=== PATIENT | male | born 1975 | race Caucasian/White ===

== ENCOUNTER 2023-12-16 21:38 | Inpatient (IN) | payer OTHER, SELFPAY ==
[2023-12-16] VITALS (10 sets, daily range): BP systolic 115–178; BP diastolic 66–98; BMI 22.7; BMI 22.1
--- NOTE | 2023-12-16 19:06 | EDRN ---
TRIAGE NOTE BY ALEX MONAE NOT SILVA POSADA
[2023-12-16] MEDS: ZOFRAN ODT (ORALLY DISINTEGRATING) 4 MG PO (19:09)
--- NOTE | 2023-12-16 19:45 | ED.GENMED ---
History of Present Illness
<Monster Cárdenas PA-C - Last Filed: 12/16/23 21:42>
General
Chief Complaint: Abdominal Symptoms
Time Seen by Provider: 12/16/23 19:31
History of Present Illness
History of Present Illness:
48-year-old male with history of insulin-dependent type 1 diabetes presents to the emergency department for evaluation of nausea and vomiting beginning this morning. He reports diffuse myalgias and arthralgias. He states he has been using his
insulin but his use has diminished recently, moved from [place] approximately 3 months ago and has not established with a primary care physician since coming to [place] glucose has been exceeding 300 for the better part of the past month. He
arrives by EMS, lethargic and toxic appearing
Review of Systems
<Monster Cárdenas PA-C - Last Filed: 12/16/23 21:42>
Review of Systems
Allergies reviewed?: Yes
All Other Systems: ROS reviewed and negative except as documented in HPI and ROS
Phy Exam
<Monster Cárdenas PA-C - Last Filed: 12/16/23 21:42>
Physical Exam
Physical Exam:
GEN: Toxic appearing, lethargic but arouses to voice
Eyes: PERRLA, EOMs intact, no scleral icterus
HENT: NCAT, oral mucosa dry
Lungs: Tachypneic and hypercapnic, lungs clear but poor inspiratory effort
Cardiac: Tachycardic, regular
Abdomen: S, NT, ND, NABS, no masses or hepatosplenomegaly
Neuro: Lethargic, arouses to voice, oriented x 3
MSK: No gross deformity or ecchymosis.
Skin: No rashes, petechiae. Normal color, no pallor or jaundice.
Psych: Lethargic, calm
Course
<DANE Ledesma Last Filed: 12/16/23 21:42>
Orders/Labs/Results
Orders:
Orders
12/16/23 19:06
Accucheck Once [Bedside Glucose Monitoring-ONCE] As Directed
12/16/23 19:08
Ondansetron Orally Disint [Zofran Odt (Orally Disintegrating)] 4 mg .ROUTE .STK-MED ONE
12/16/23 19:09
Ondansetron Orally Disint [Zofran Odt (Orally Disintegrating)] 4 mg PO NOW STA
12/16/23 19:20
Comprehensive Metabolic Panel Urgent
12/16/23 19:44
Electrocardiogram (*1) Urgent
Reason for Study: QTc Monitoring
EKG- Treatment ONCE
Acetone [B-Hydroxybutyrate] Urgent
Lactated Ringers [Lr] 1,000 ml IV BOLUS
Ondansetron Injectable [Zofran] 4 mg IV NOW STA
12/16/23 19:50
Bedside Glucose- Treatment Q1H
IV Insert/Care/Rem.- Treatment PRN
Reg Insulin 100 Units/100 ml [Novolin R Insulin Infusion] 100 units in 100 ml IV NOW
12/16/23 20:07
Complete Blood Count/With Diff Urgent
Urinalysis Reflex To Culture Urgent
Date Specimen was Collected: 12/16/23
Time Specimen was Collected: 19:46
Urine Microscopic Reflex Cult Urgent
Venous Blood Gas Urgent
%Oxygen/Room Air: 100
12/16/23 20:23
0.9% Sodium Chloride 1000 ml [Nss] 1,000 ml IV BOLUS
12/16/23 20:45
0.45% Sodium Chloride 1000 ml [0.45%NaCl] 1,000 ml Sodium Bicarbonate 150 meq IV 150 mls/hr
12/16/23 21:25
Admit/Transfer Patient As Directed
Co-Sign Provider:
Level of Care: Inpatient admission
Assign to:: ICU
Physician / Group: juan
Diagnosis: DKA
Reason for Hospitalization: DKA
Expected length of stay greater than two midnights?: Yes
ELOS- Estimated Length of Stay in days: 2
I certify the patient meets the requirements for IP care: Yes
Code Status As Directed
Resuscitation Status: Full Code
PRN Pain Medication Management As Directed
May give lesser potent ordered pain med per pt: Yes
preference::
Protocol:: Medication orders for pain may be administered in a
manner that supports deferring to patient preference
when the pt is:
- Requesting an ordered lesser potent pain medication.
Least to most potent pain medications are defined
as: acetaminophen < NSAID < tramadol < opioids
(morphine, oxycodone, hydromorphone).
- Requesting a lesser dose of the same medication IF
ORDERED.
- Requesting a less intrusive route of administration
if both routes are prescribed by the provider (PO <
IV).
12/16/23 21:30
Phosphorus Urgent
12/16/23 21:31
0.9% Sodium Chloride [Nss (Preservative Free)] See Protocol IV PRN PRN
FOLic ACID [Folvite] 1 mg 0.9% Sodium Chloride 50 ml [Nss] 50 ml IV DAILYPRN
Lorazepam [Ativan] 1 mg IV Q1HPRN PRN
Lorazepam [Ativan] 1 mg PO Q2HPRN PRN
Lorazepam [Ativan] 2 mg IV Q1HPRN PRN
MSAS SCORE As Directed
MSAS Score 0-4: Repeat MSAS every 2 hours until 0-4 for three consecutive assessments, then every 4 hours x 48
hours.
MSAS Score 5-7: For MILD withdrawl symptoms. Repeat MSAS and RASS every 2 hours
MSAS Score 8-11: For MODERATE withdrawal symptoms. Repeat MSAS and RASS every 1 hour. Consider ICU or IMU
level of care.
MSAS Score > 11: For SEVERE withdrawal symptoms. Repeat MSAS and RASS every 1 hour. Notify provider, consider
ICU level of care.
MSAS Additional Instructions: If no improvement or no decrease in score from severe to moderate within 12
hours, consult psychiatry
MSAS Notify Provider: Notify provider if patient requires more than 10 mg of Lorazepam in eight hour period.
12/16/23 21:35
CR Chest Portable - 1 View Urgent
Comment:
Reason For Exam: dka trigger
Reason Study Needs to be Portable: Unable to Transport
12/16/23 22:00
Pantoprazole [Protonix IV] 40 mg IV BID
12/17/23 08:00
FOLic ACID [Folvite] 1 mg PO DAILY
Thiamine Injection 200 mg IV Q12
12/20/23 08:00
Thiamine HCl [Vitamin B1] 100 mg PO BID
Abnormal Lab Results
12/16/23 12/16/23 12/16/23
19:20 19:44 20:07
WBC 23.4 H 10^3/uL
(4.8-10.8)
MCH 31.7 H pg
(27.0-31.0)
MPV 12.8 H fL
(7.4-10.4)
Abs Immat Gran (auto) 0.3 H 10^3/uL
(0-0.05)
Absolute Neuts (auto) 18.9 H 10^3/uL
(1.4-6.5)
Absolute Monos (auto) 1.4 H 10^3/uL
(0.1-0.6)
Immature Gran % 1.3 H %
(0-0.5)
Neutrophils % 80.5 H %
(42.2-75.2)
Lymphocytes % 11.3 L %
(20.5-51.1)
VBG pH 6.80 L*
(7.32-7.43)
VBG pCO2 30 L mmHg
(35-48)
VBG pO2 94 H mmHg
(30-50)
VBG HCO3 4.7 L mmol/L
(22-27)
Potassium 5.4 H mmol/L
(3.5-5.1)
Chloride 96 L mmol/L
(98-107)
Carbon Dioxide < 5 L* mmol/L
(22-30)
Glucose 537 H* mg/dl
(70-99)
Calcium 10.3 H mg/dl
(8.4-10.2)
Albumin 5.8 H g/dl
(3.5-5.0)
Urine Ketones 3+ A
(Negative)
Ur Occult Blood Reflex Trace A
(Negative)
Urine Bacteria (Reflex) Few A
(Negative)
Urine Glucose 3+ A
(Negative)
B-Hydroxybutyrate > 12.0 H mmol/L
(0.02-0.27)
POC Glucose
12/16/23
20:46
WBC
MCH
MPV
Abs Immat Gran (auto)
Absolute Neuts (auto)
Absolute Monos (auto)
Immature Gran %
Neutrophils %
Lymphocytes %
VBG pH
VBG pCO2
VBG pO2
VBG HCO3
Potassium
Chloride
Carbon Dioxide
Glucose
Calcium
Albumin
Urine Ketones
Ur Occult Blood Reflex
Urine Bacteria (Reflex)
Urine Glucose
B-Hydroxybutyrate
POC Glucose 498 H* mg/dl
(70-99)
12/16/23 20:07
12/16/23 19:20
Vital Signs
Initial and Last Documented VS:
Initial Vital Signs
Temp Pulse Resp BP Pulse Ox
97.1 F 104 24 178/98 100
12/16/23 19:01 12/16/23 19:01 12/16/23 19:01 12/16/23 19:01 12/16/23 19:01
Last Documented Vital Signs
Temp Pulse Resp BP Pulse Ox
97.1 F 120 17 133/67 96
12/16/23 19:01 12/16/23 21:30 12/16/23 21:30 12/16/23 21:30 12/16/23 21:00
<Yovany Peña, DO - Last Filed: 12/16/23 22:06>
Orders/Labs/Results
Orders:
Orders
12/16/23 19:06
Accucheck Once [Bedside Glucose Monitoring-ONCE] As Directed
12/16/23 19:08
Ondansetron Orally Disint [Zofran Odt (Orally Disintegrating)] 4 mg .ROUTE .STK-MED ONE
12/16/23 19:09
Ondansetron Orally Disint [Zofran Odt (Orally Disintegrating)] 4 mg PO NOW STA
12/16/23 19:20
Comprehensive Metabolic Panel Urgent
12/16/23 19:44
Electrocardiogram (*1) Urgent
Reason for Study: QTc Monitoring
EKG- Treatment ONCE
Acetone [B-Hydroxybutyrate] Urgent
Lactated Ringers [Lr] 1,000 ml IV BOLUS
Ondansetron Injectable [Zofran] 4 mg IV NOW STA
12/16/23 19:50
Bedside Glucose- Treatment Q1H
IV Insert/Care/Rem.- Treatment PRN
Reg Insulin 100 Units/100 ml [Novolin R Insulin Infusion] 100 units in 100 ml IV NOW
12/16/23 20:07
Complete Blood Count/With Diff Urgent
Urinalysis Reflex To Culture Urgent
Date Specimen was Collected: 12/16/23
Time Specimen was Collected: 19:46
Urine Microscopic Reflex Cult Urgent
Venous Blood Gas Urgent
%Oxygen/Room Air: 100
12/16/23 20:23
0.9% Sodium Chloride 1000 ml [Nss] 1,000 ml IV BOLUS
12/16/23 20:45
0.45% Sodium Chloride 1000 ml [0.45%NaCl] 1,000 ml Sodium Bicarbonate 150 meq IV 150 mls/hr
12/16/23 21:25
Admit/Transfer Patient As Directed
Co-Sign Provider:
Level of Care: Inpatient admission
Assign to:: ICU
Physician / Group: juan
Diagnosis: DKA
Reason for Hospitalization: DKA
Expected length of stay greater than two midnights?: Yes
ELOS- Estimated Length of Stay in days: 2
I certify the patient meets the requirements for IP care: Yes
Code Status As Directed
Resuscitation Status: Full Code
PRN Pain Medication Management As Directed
May give lesser potent ordered pain med per pt: Yes
preference::
Protocol:: Medication orders for pain may be administered in a
manner that supports deferring to patient preference
when the pt is:
- Requesting an ordered lesser potent pain medication.
Least to most potent pain medications are defined
as: acetaminophen < NSAID < tramadol < opioids
(morphine, oxycodone, hydromorphone).
- Requesting a lesser dose of the same medication IF
ORDERED.
- Requesting a less intrusive route of administration
if both routes are prescribed by the provider (PO <
IV).
12/16/23 21:30
Phosphorus Urgent
12/16/23 21:31
0.9% Sodium Chloride [Nss (Preservative Free)] See Protocol IV PRN PRN
FOLic ACID [Folvite] 1 mg 0.9% Sodium Chloride 50 ml [Nss] 50 ml IV DAILYPRN
Lorazepam [Ativan] 1 mg IV Q1HPRN PRN
Lorazepam [Ativan] 1 mg PO Q2HPRN PRN
Lorazepam [Ativan] 2 mg IV Q1HPRN PRN
MSAS SCORE As Directed
MSAS Score 0-4: Repeat MSAS every 2 hours until 0-4 for three consecutive assessments, then every 4 hours x 48
hours.
MSAS Score 5-7: For MILD withdrawl symptoms. Repeat MSAS and RASS every 2 hours
MSAS Score 8-11: For MODERATE withdrawal symptoms. Repeat MSAS and RASS every 1 hour. Consider ICU or IMU
level of care.
MSAS Score > 11: For SEVERE withdrawal symptoms. Repeat MSAS and RASS every 1 hour. Notify provider, consider
ICU level of care.
MSAS Additional Instructions: If no improvement or no decrease in score from severe to moderate within 12
hours, consult psychiatry
MSAS Notify Provider: Notify provider if patient requires more than 10 mg of Lorazepam in eight hour period.
12/16/23 21:35
CR Chest Portable - 1 View Urgent
Comment:
Reason For Exam: dka trigger
Reason Study Needs to be Portable: Unable to Transport
12/16/23 22:00
Pantoprazole [Protonix IV] 40 mg IV BID
12/17/23 08:00
FOLic ACID [Folvite] 1 mg PO DAILY
Thiamine Injection 200 mg IV Q12
12/20/23 08:00
Thiamine HCl [Vitamin B1] 100 mg PO BID
Abnormal Lab Results
12/16/23 12/16/23 12/16/23
19:20 19:44 20:07
WBC 23.4 H 10^3/uL
(4.8-10.8)
MCH 31.7 H pg
(27.0-31.0)
MPV 12.8 H fL
(7.4-10.4)
Abs Immat Gran (auto) 0.3 H 10^3/uL
(0-0.05)
Absolute Neuts (auto) 18.9 H 10^3/uL
(1.4-6.5)
Absolute Monos (auto) 1.4 H 10^3/uL
(0.1-0.6)
Immature Gran % 1.3 H %
(0-0.5)
Neutrophils % 80.5 H %
(42.2-75.2)
Lymphocytes % 11.3 L %
(20.5-51.1)
VBG pH 6.80 L*
(7.32-7.43)
VBG pCO2 30 L mmHg
(35-48)
VBG pO2 94 H mmHg
(30-50)
VBG HCO3 4.7 L mmol/L
(22-27)
Potassium 5.4 H mmol/L
(3.5-5.1)
Chloride 96 L mmol/L
(98-107)
Carbon Dioxide < 5 L* mmol/L
(22-30)
Glucose 537 H* mg/dl
(70-99)
Calcium 10.3 H mg/dl
(8.4-10.2)
Albumin 5.8 H g/dl
(3.5-5.0)
Urine Ketones 3+ A
(Negative)
Ur Occult Blood Reflex Trace A
(Negative)
Urine Bacteria (Reflex) Few A
(Negative)
Urine Glucose 3+ A
(Negative)
B-Hydroxybutyrate > 12.0 H mmol/L
(0.02-0.27)
POC Glucose
12/16/23
20:46
WBC
MCH
MPV
Abs Immat Gran (auto)
Absolute Neuts (auto)
Absolute Monos (auto)
Immature Gran %
Neutrophils %
Lymphocytes %
VBG pH
VBG pCO2
VBG pO2
VBG HCO3
Potassium
Chloride
Carbon Dioxide
Glucose
Calcium
Albumin
Urine Ketones
Ur Occult Blood Reflex
Urine Bacteria (Reflex)
Urine Glucose
B-Hydroxybutyrate
POC Glucose 498 H* mg/dl
(70-99)
12/16/23 20:07
12/16/23 19:20
Vital Signs
Initial and Last Documented VS:
Initial Vital Signs
Temp Pulse Resp BP Pulse Ox
97.1 F 104 24 178/98 100
12/16/23 19:01 12/16/23 19:01 12/16/23 19:01 12/16/23 19:01 12/16/23 19:01
Last Documented Vital Signs
Temp Pulse Resp BP Pulse Ox
97.1 F 120 17 133/67 96
12/16/23 19:01 12/16/23 21:30 12/16/23 21:30 12/16/23 21:30 12/16/23 21:00
<Monster Cárdenas PA-C - Last Filed: 12/16/23 21:42>
MDM/Problems Addressed
MDM/Problems Addressed:
Patient is quite ill with severe anion gap metabolic acidosis due to DKA. Started on aggressive IV fluid resuscitation and IV insulin drip, bicarb initiated via infusion due to pH 6.8. Will be admitted to the ICU. No overt infectious symptoms,
suspect leukocytosis is a product of volume contraction and stress response, do not see indication for antibiotics
<Monster Cárdenas PA-C - Last Filed: 12/16/23 21:42>
Comment
Comment:
EKG independently interpreted by me shows a sinus tachycardia at a rate of 115 with mildly peaked T waves, no ischemic changes
*Critical Care Note
Total Time (30-74mins, 75-104mins- exclusive of procedures): 45 mins
comment:
Critical care time: 45 minutes
Critical care time was exclusive of: Separately billable procedures, treating other patients, and teaching time
Critical care was necessary to treat or prevent imminent or life-threatening deterioration of the following conditions: DKA with severe metabolic acidosis
Critical care time spent personally by me on the following activities:
[x] Review of old charts
[x] Obtaining history from patient or surrogate
[x] Ordering and review of the laboratory studies
[ ] Ordering and review of radiographic studies
[x] Ordering and performing treatments and interventions
[x] Patient patient's response to treatment
[x] Development of treatment plan with patient or surrogate
ED Attending Note
<Monster Cárdenas PA-C - Last Filed: 12/16/23 21:42>
-
Portions of this chart may have been created with voice recognition software.� Occasional wrong word or��sound alike� substitutions may have occurred due to the inherent limitations of voice recognition software.
<Yovany Peña DO - Last Filed: 12/16/23 22:06>
ED Attending Note
Patient seen and examined by attending physician: Yes
I performed the substantive portion of visit, reviewed & personally made and approve the management plan that is documented in note by myself or SARAH.: Yes
ED Attending Note:
48-year-old male with vomiting and hyperglycemia. Found to be in DKA. Insulin drip, bicarb drip, admit.
Discharge Plan
Departure
Patient Disposition: Admit
Date of Disposition: 12/16/23
Time of Disposition: 20:45
Admit to: ICU
Presentation/result/management discussed w/ accepting MD/DO: Hospitalist
Discharge Problem:
DKA (diabetic ketoacidosis)
Interventions
Interventions:
*Risk Screen - Suicide Last Done: 12/16/23 19:01
*General Assessment Last Done: 12/16/23 19:36
*Neglect/Abuse Screening Last Done: 12/16/23 19:01
ED- Fall Risk Assessment Last Done: 12/16/23 19:36
*Nursing Disposition Last Done: 12/16/23 21:47
WC-Eqeumi-Vvsdrmcjle Assessment Last Done: 12/16/23 19:36
Discharge Date and Time
Discharge Date/Time: 12/16/23 21:54
[2023-12-16 19:46] LABS: ALT (SGPT) 31 U/L (0-50); AST (SGOT) 30 U/L (17-59); Albumin 5.8 g/dl (3.5-5.0); Alkaline Phosphatase 92 U/L (38-126); Blood Urea Nitrogen 20 mg/dl (9-20); Calcium 10.3 mg/dl (8.4-10.2); Carbon Dioxide < 5 mmol/L (22-30); Chloride 96 mmol/L (98-107); Glucose 537 mg/dl (70-99); Potassium 5.4 mmol/L (3.5-5.1); Sodium 138 mmol/L (135-145); Total Bilirubin 0.7 mg/dl (0.2-1.3); eGFR > 60.00
[2023-12-16 20:15] LABS: % Basophils 0.6 % (0-2); % Eosinophils 0.2 % (0-6); % Immature Granulocytes 1.3 % (0-0.5); % Lymphocytes 11.3 % (20.5-51.1); % Monocytes 6.1 % (1.7-9.3); % Neutrophils 80.5 % (42.2-75.2); Absolute Basophils 0.1 10^3/uL (0-0.2); Absolute Immature Granulocytes 0.3 10^3/uL (0-0.05); Absolute Lymphocytes 2.6 10^3/uL (1.2-3.4); Absolute Monocytes 1.4 10^3/uL (0.1-0.6); Absolute Neutrophils 18.9 10^3/uL (1.4-6.5); Hematocrit 46.2 % (39.0-52.0); Hemoglobin 15.9 g/dL (13.0-18.0); Mean Corp Hgb Conc. 34.4 g/dL (33.0-37.0); Mean Corpuscular Hgb 31.7 pg (27.0-31.0); Mean Corpuscular Volume 92.2 fL (80.0-94.0); Mean Platelet Volume 12.8 fL (7.4-10.4); Nucleated Red Blood Cells % 0 % (-); Platelet Count 200 10^3/uL (130-400); Red Blood Cell Count 5.01 10^6/uL (4.70-6.10); Red Cell Dist. Width 11.8 % (11.5-14.5); White Blood Cell Count 23.4 10^3/uL (4.8-10.8)
[2023-12-16 20:20] LABS: Venous Blood Gas B.E. -29.9 mmol/L (-4 to +4); Venous Blood Gas HCO3 4.7 mmol/L (22-27); Venous Blood Gas O2 Sat % 98.2 %; Venous Blood Gas pCO2 30 mmHg (35-48); Venous Blood Gas pO2 94 mmHg (30-50)
[2023-12-16] MEDS: ZOFRAN 4 MG IV (20:22)
[2023-12-16] MEDS: LR 1000 IV (20:23)
[2023-12-16] MEDS: NSS 1000 IV (20:24)
[2023-12-16] MEDS: NOVOLIN R INSULIN INFUSION 100 IV (20:45)
[2023-12-16 20:48] LABS: Glucose - Point of Care 498 mg/dl (70-99)
[2023-12-16 21:10] LABS: B-Hydroxybutyrate > 12.0 mmol/L (0.02-0.27)
[2023-12-16 21:32] LABS: Urine Albumin Trace (Neg - Trace); Urine Bilirubin Negative (Negative); Urine Character Clear (Clear); Urine Color Yellow; Urine Glucose 3+ (Negative); Urine Ketone 3+ (Negative); Urine Leukocyte Negative (Negative); Urine Nitrite Negative (Negative); Urine Occult Blood Trace (Negative); Urine Urobilinogen Negative (Neg - 1+)
--- NOTE | 2023-12-16 21:33 | HPS.HSE ---
Family Physician
-
Family Physician: * NONE
Chief Complaint
-
vomiting
History of Present Illness
48-year-old male past medical history of type 1 diabetes presenting to the emergency room for nausea and vomiting starting this morning. Patient moved from [place] last year and has not sought out a primary care physician in the area. He states
that he takes Lantus 20 units twice a day with sliding scale and he has been compliant with this. He states that sugars have been very variable up to 500 at times. He thinks that his blood sugars are elevated due to the weather.
Today he developed multiple episodes of vomiting associate with coffee-ground emesis. He did have some chest pain intermittent abdominal pains but denies significant pain currently. Coughing of blood has resolved. He denies any diarrhea. He
denies any blood in the stool or black stool. He denies shortness of breath. Patient states that he was coughing up blood previously and around 2019. He had an endoscopy but he does not remember what the results showed.
He drinks liquor 2-3 times a day. Denies smoking or any other drugs.
Medical History
Past Medical History
Past Medical History: Reports Other ( type 1 diabetes)
Past Surgical History: Reports None
Social History
Tobacco: Non-smoker
Alcohol: Daily
Drug: None
Family History
Family History: Not pertinent
Allergies / Home Medications
Allergies reflects when Allergies were last updated in [email or web address].
Home Medications with original date entered in [email or web address]
Allergy/Medication List:
Allergies
Allergy/AdvReac Type Severity Reaction Status Date / Time
No Known Allergies Allergy Verified 12/16/23 20:31
Review of Systems
-
History Source: Patient
A 12 point ROS was completed and negative except as noted: Yes
Constitutional: Reports No Symptoms
EENT: Reports No Symptoms
Respiratory: Reports No Symptoms
Cardiac: Reports No Symptoms
Abdomen/GI: Reports No Symptoms
: Reports No Symptoms
Musculoskeletal: Reports No Symptoms
Skin: Reports No Symptoms
Neurological: Reports No Symptoms
Endocrine: Reports No Symptoms
Hematologic/Lymphatic: Reports No Symptoms
Psych: Reports No Symptoms
Physical Exam
Vital Signs
Vital Signs
Temp Pulse Resp BP Pulse Ox
97.1 F 120 17 159/74 96
12/16/23 19:01 12/16/23 21:30 12/16/23 21:30 12/16/23 21:00 12/16/23 21:00
Physical Exam
General: Well Developed, Well Nourished and No Apparent Distress
HEENT: NormoCephalic, Moist mucous membranes and Atraumatic
Respiratory: Clear
Cardiac: S1/S2 and Regular Rhythm; No Murmur or Rub
GI: Soft, Non Tender, Non Distended and Normal Bowel Sounds; No Organomegaly
Rectal: Deferred by Provider
Musculoskeletal: No Clubbing, No Cyanosis and No Edema
Skin: No Rash
Neuro: Nonfocal/grossly intact
Laboratory Results
-
12/16/23 20:07
12/16/23 19:20
Laboratory Results
Total Bilirubin 0.7 mg/dl (0.2-1.3) 12/16/23 19:20
AST 30 U/L (17-59) 12/16/23 19:20
ALT 31 U/L (0-50) 12/16/23 19:20
Alkaline Phosphatase 92 U/L (38-126) 12/16/23 19:20
Data Reviewed
-
Lab Data: Labs Reviewed by me
Old Records: Reviewed
Impression/Plan
-
IMPRESSION:
PLAN:
# DKA
# Anion gap metabolic acidosis
# History of type 1 diabetes
-Blood sugar 537
-Corrected sodium 145
-pH of 6.8
-IV fluids with bicarb 150 meq without potassium
-Check BMP every 4 hours and adjust IV fluids as necessary
-Check phosphorus
-Accu-Cheks every hour
-Insulin drip
-N.p.o.
-check UA, CXR
# Hyperkalemia secondary to insulin deficiency
-Monitor with IV fluids
# Hematemesis likely Norma-Storey tear
-Hemoglobin 15
-Bleeding resolved
-Protonix 40 IV twice daily
-Consult GI for worsening anemia, further bleeding
# Likely alcohol withdrawal
-Thiamine and folate
-Alcohol withdrawal protocol
Full code
DVT prophylaxis�SCDs
N.p.o.
[2023-12-16 21:41] LABS: Glucose - Point of Care 488 mg/dl (70-99)
--- NOTE | 2023-12-16 21:41 | EDRN ---
attempted to call ICU to given report, RN unavailable at this time.
[2023-12-16 21:42] LABS: Urine Bacteria Few (Negative); Urine Red Blood Cell 0-2 /HPF (0-2); Urine White Cell 0-2 /HPF (0-5)
[2023-12-16 22:29] LABS: Glucose - Point of Care 547 mg/dl (70-99)
[2023-12-16] MEDS: COMPAZINE 10 MG IV (22:34)
[2023-12-16 22:36] LABS: PT 15.1 Sec (11.4-14.6)
[2023-12-16 22:45] LABS: Phosphorus 9.3 mg/dl (2.5-4.5)
[2023-12-16 22:45] LABS: Glucose 438 mg/dl (70-99)
--- NOTE | 2023-12-16 22:45 | PTCARENOTE ---
Pt arrived from ED ~2199. Pt transferred self from stretcher to bed without incidence. Complete CHG bath provided upon arrival to unit. Pt admitted w DKA, received on insulin infusion from ED; accucheck performed 2211 with RR HI result, STAT glucose
drawn and sent per protocol. Venous glucose result received 2300 438, insulin infusion rate adjusted per protocol. This was discussed w VALENTIN Rodgers. Pt is AAO3, flat/withdrawn. Pt reports acute on chronic back pain 'from lying on stretcher,' pt
repositioning self in bed without issue. Telemetry rhythm reveals ST, HR 120-130's, no edema noted, palpable peripheral pulses present, knee high SCDs placed as ordered. Lung sounds are clear throughout, pox 90-99% on room air, pt denies SOB/cough.
+BS, abdomen soft nontender, + nausea, vomited < 50ml dark brown emesis shortly after arrival to ICU. DEMAND GENERATION MANAGER placed order for Compazine IV X1, administered with good relief. Pt voided yellow urine into urinal without difficulty. Skin intact. L AC int
with insulin infusion; R AC int with IVF per orders. Pt's significant other, Ngoc, at bedside. Safe environment maintained, call jacome within reach. Will monitor.
[2023-12-16] MEDS: PROTONIX IV 40 MG IV (22:54)
[2023-12-16] MEDS: FLUSH (NSS) 1 FLUSH IV (22:54)
[2023-12-16] MEDS: 0.45% NACL with KCL 20 MEQ 1000 IV (23:01)
[2023-12-17] VITALS (24 sets, daily range): BP systolic 108–138; BP diastolic 57–84; BMI 22.7
[2023-12-17 00:19] LABS: Glucose - Point of Care 384 mg/dl (70-99)
--- NOTE | 2023-12-17 00:30 | PTCARENOTE ---
Pt sleeping when undisturbed. Pt's SO remains at bedside. Continuing Q1H accuchecks and serial labs as ordered. MSAS per protocol. No change in pt assessment.
[2023-12-17 01:03] LABS: Blood Urea Nitrogen 19 mg/dl (9-20); Calcium 8.7 mg/dl (8.4-10.2); Carbon Dioxide < 5 mmol/L (22-30); Chloride 106 mmol/L (98-107); Estimated Creatinine Clearance 95 ml/min; Glucose 344 mg/dl (70-99); Potassium 5.7 mmol/L (3.5-5.1); Sodium 141 mmol/L (135-145); eGFR > 60.00
[2023-12-17] MEDS: 0.45%NACL 1000 IV (01:22)
[2023-12-17 01:31] LABS: Venous Blood Gas B.E. -19.8 mmol/L (-4 to +4); Venous Blood Gas HCO3 9.3 mmol/L (22-27); Venous Blood Gas O2 Sat % 94.8 %; Venous Blood Gas pCO2 32 mmHg (35-48); Venous Blood Gas pO2 60 mmHg (30-50)
[2023-12-17 01:31] LABS: Glucose - Point of Care 295 mg/dl (70-99)
[2023-12-17 01:33] LABS: Venous Blood Gas pH 7.07 (7.32-7.43)
[2023-12-17 02:13] LABS: Glucose - Point of Care 255 mg/dl (70-99)
[2023-12-17 03:11] LABS: Glucose - Point of Care 243 mg/dl (70-99)
--- NOTE | 2023-12-17 03:15 | PTCARENOTE ---
Pt sleeping when undisturbed. Significant other remains at bedside. Pt's hourly accucheck result @ 0300 243. Discussed w VALENTIN Rodgers; per FLEXO OPERATOR will continue IVF as ordered and re-evaluate with 0400 accucheck/BMP. No change in pt physical assessment.
[2023-12-17 04:15] LABS: Glucose - Point of Care 230 mg/dl (70-99)
[2023-12-17 04:31] LABS: % Basophils 0.1 % (0-2); % Immature Granulocytes 0.7 % (0-0.5); % Lymphocytes 3.9 % (20.5-51.1); % Monocytes 4.4 % (1.7-9.3); % Neutrophils 90.9 % (42.2-75.2); Absolute Immature Granulocytes 0.1 10^3/uL (0-0.05); Absolute Lymphocytes 0.7 10^3/uL (1.2-3.4); Absolute Monocytes 0.7 10^3/uL (0.1-0.6); Absolute Neutrophils 15.2 10^3/uL (1.4-6.5); Hematocrit 37.3 % (39.0-52.0); Hemoglobin 13.4 g/dL (13.0-18.0); Mean Corp Hgb Conc. 35.9 g/dL (33.0-37.0); Mean Corpuscular Hgb 31.7 pg (27.0-31.0); Mean Corpuscular Volume 88.2 fL (80.0-94.0); Mean Platelet Volume 12.2 fL (7.4-10.4); Nucleated Red Blood Cells % 0 % (-); Platelet Count 135 10^3/uL (130-400); Red Blood Cell Count 4.23 10^6/uL (4.70-6.10); Red Cell Dist. Width 11.5 % (11.5-14.5); White Blood Cell Count 16.8 10^3/uL (4.8-10.8)
[2023-12-17 04:55] LABS: Blood Urea Nitrogen 19 mg/dl (9-20); Calcium 8.7 mg/dl (8.4-10.2); Carbon Dioxide 10 mmol/L (22-30); Chloride 107 mmol/L (98-107); Estimated Creatinine Clearance 108 ml/min; Glucose 232 mg/dl (70-99); Potassium 5.1 mmol/L (3.5-5.1); Sodium 141 mmol/L (135-145); eGFR > 60.00
[2023-12-17] MEDS: D5/0.45%NSS with KCL 20 MEQ 1000 IV ×5 (05:10→21:09)
[2023-12-17 05:13] LABS: Glucose - Point of Care 199 mg/dl (70-99)
--- NOTE | 2023-12-17 05:28 | PTCARENOTE ---
AM labs discussed w HAND STITCHER Vishal. 0500 accucheck result relayed to HAND STITCHER, new orders received for IVF. Pt's HR 90's bpm, pox 100% 2L O2 nasal cannula, MSAS < 4 since arrival to ICU. Will continue to monitor.
[2023-12-17 06:18] LABS: Glucose - Point of Care 230 mg/dl (70-99)
[2023-12-17] MEDS: THIAMINE INJECTION 200 MG IV ×2 (07:13→21:08)
[2023-12-17] MEDS: PROTONIX IV 40 MG IV ×2 (07:13→21:08)
[2023-12-17] MEDS: FOLVITE 1 MG PO (07:13)
[2023-12-17 07:14] LABS: Glucose - Point of Care 242 mg/dl (70-99)
--- NOTE | 2023-12-17 07:45 | PTCARENOTE ---
Rec'd care of patient at 0700. Patient alert and oriented. Flat affect. NSR on tele monitor. 2L nc removed. Pulse ox 99% on RA. Lung sounds diminished in b/l base. +BS. No n/v at current time. Voiding via urinal. Insulin gtt and D5 1/2 NS w/ 20 KCl
infusing as ordered. NPO. VSS.
[2023-12-17 08:15] LABS: Glucose - Point of Care 269 mg/dl (70-99)
[2023-12-17 08:25] LABS: Glycohemoglobin (HgbA1c) 9.4 % (4.0-5.6)
[2023-12-17 08:52] LABS: Blood Urea Nitrogen 18 mg/dl (9-20); Calcium 8.5 mg/dl (8.4-10.2); Carbon Dioxide 17 mmol/L (22-30); Chloride 105 mmol/L (98-107); Estimated Creatinine Clearance 122 ml/min; Glucose 267 mg/dl (70-99); Potassium 5.1 mmol/L (3.5-5.1); Sodium 135 mmol/L (135-145); eGFR > 60.00
--- NOTE | 2023-12-17 09:39 | W.PN.HOSP.TC ---
Today's Communication/Plan
-
IV fluids. IV insulin drip.
Assessment / Plan
Assessment / Plan
Physical exam:
General: Acutely ill
HEENT: Normocephalic, Atraumatic and Moist Mucous Membranes
Respiratory: Clear to Auscultation; Negative Wheezes, Rales or Rhonchi
Cardiac: Regular Rhythm and S1/S2
GI: Soft, Nontender and Nondistended
Musculoskeletal: No Clubbing, No Cyanosis and No Edema
Neuro: Awake, Alert and Oriented
Psych: Calm
A/P:
# DKA
# Anion gap metabolic acidosis
# History of type 1 diabetes
-Blood sugar 537
-Corrected sodium 145
-pH of 6.8
-IV fluids with bicarb 150 meq without potassium
-Check BMP every 4 hours and adjust IV fluids as necessary
-Check phosphorus
-Accu-Cheks every hour
-Insulin drip
-N.p.o.
-check UA, CXR
-Discussed with car shagger
# Hyperkalemia secondary to insulin deficiency
-Monitor with IV fluids
# Hematemesis likely Norma-Storey tear
-Hemoglobin 15
-Bleeding resolved
-Protonix 40 IV twice daily
-Monitor hemoglobin
# Likely alcohol withdrawal
-Thiamine and folate
-Alcohol withdrawal protocol
Full code
DVT prophylaxis�SCDs
N.p.o.
Time spent 53 minutes
Anticipated Discharge: 24 - 48 hours
Subjective/Interval History
-
Date of Service: December 17, 2023
Patient feels better overall today. He had moved recently to the area and no PCP. No melena
Objective Data
-
Labs:
Laboratory Results
12/16/23 12/16/23 12/17/23
20:07 22:18 00:42
WBC 23.4 H
Hgb 15.9
Hct 46.2
Plt Count 200
PT 15.1 H
INR 1.20
APTT 26.0
Sodium 141
Potassium 5.7 H
Chloride 106
Carbon Dioxide < 5 L*
BUN 19
Creatinine 1.0
Glucose 438 H 344 H
Calcium 8.7 D
12/17/23 12/17/23 12/17/23
04:03 08:06 12:00
WBC 16.8 H
Hgb 13.4
Hct 37.3 L
Plt Count 135 D
PT
INR
APTT
Sodium 141 135 Pending
Potassium 5.1 5.1 Pending
Chloride 107 105 Pending
Carbon Dioxide 10 L* 17 L Pending
BUN 19 18 Pending
Creatinine 0.9 0.8 Pending
Glucose 232 H 267 H Pending
Calcium 8.7 8.5 Pending
12/17/23 12/17/23
16:00 20:00
WBC
Hgb
Hct
Plt Count
PT
INR
APTT
Sodium Pending Pending
Potassium Pending Pending
Chloride Pending Pending
Carbon Dioxide Pending Pending
BUN Pending Pending
Creatinine Pending Pending
Glucose Pending Pending
Calcium Pending Pending
Vital Signs:
Vital Signs
Temp Pulse Resp BP Pulse Ox
99.6 F 96 18 124/68 99
12/17/23 08:00 12/17/23 07:00 12/17/23 07:00 12/17/23 07:00 12/17/23 07:26
I&O
12/16/23 12/17/23 12/18/23
06:59 06:59 06:59
Intake Total 2031 / 2284 253 / 253
Output Total 2224
Balance - 253 / 253
[2023-12-17 09:43] LABS: Glucose - Point of Care 243 mg/dl (70-99)
[2023-12-17 10:39] LABS: Glucose - Point of Care 262 mg/dl (70-99)
--- NOTE | 2023-12-17 11:08 | CON.INTV ---
Consultation
Consultation Request
Date/Time Consultation Requested: 12/17/2023
Date/Time Consultation Performed: 12/17/2023
Requesting Provider: Dr. Brady
Performing Provider: Dr. Tima Pak
Reason for Consultation: Diabetes ketoacidosis
Medical History
-
History of Present Illness:
48-year-old male with past medical history significant for type 1 diabetes presented to the emergency room with nausea and vomiting starting the morning of admission. Patient moves from [place] last year and does not have a primary care doctor.
Did not have his usual insulin. Usually on long-acting insulin and as needed short acting insulin.
Sugar was elevated for days.
The day of admission developed some vomiting with coffee-ground emesis. Denies any dark stools.
Denies hematemesis.
He drinks about 2-3 liquor beverages 2 or 3/day.
Denies any smoking or illegal drugs
Past Medical History
Past Medical History: Other (See assessment and plan)
Social History
Tobacco: Non-smoker
Alcohol: Daily
Drug: None
Family History
Family History: Reviewed & Not Pertinent
Allergies / Home Medications
Allergies
Allergy/AdvReac Type Severity Reaction Status Date / Time
No Known Allergies Allergy Verified 12/16/23 20:31
Review of Systems
-
History Source: Patient
All other systems: Negative unless noted
Vitals / Labs / Diagnostic Testing
Vital Signs
Temp Pulse Resp BP Pulse Ox
98.4 F 87 15 108/57 100
12/17/23 10:38 12/17/23 10:00 12/17/23 10:00 12/17/23 10:00 12/17/23 10:00
Lab Data
12/17/23 04:03
Laboratory Results
12/16/23
22:18
PT 15.1 H
INR 1.20
APTT 26.0
Diagnostic Testing:
Physical Exam
-
HEENT: Normocephalic
Cardiovascular: S1/S2 and Regular Rhythm
Respiratory: Non-Labored Respirations
GI: Soft
Neurology: Awake, Alert and No Motor Deficits
Skin: Warm
General: Comfortable
Assessment
-
Diabetes ketoacidosis-triggered by medical noncompliance.
ABG 12/17/2023 1 AM, 7.0
Hematemesis-possible Norma-Storey tear post vomiting
History of type 1 diabetes
Daily alcohol use
Assessment and plan:
Critically ill with profound metabolic acidosis.
Diabetes ketoacidosis: Medical noncompliance, recently moved to the area does not have a primary doctor. Not taking his insulin.
Continue DKA protocol
Insulin drip
Accu-Cheks
Serial laboratory testing
Follow electrolytes and replete as necessary
Diabetes nurse practitioner to help with future plans in the outpatient setting.
IV fluids-blood sugars improved and now on D5 and a half. Will titrate as necessary depending on blood sugars.
-
Hyperkalemia resolved
Continue with serial BMP per protocol
-
Monitor for alcohol withdrawal. Patient drinks at least 3 alcoholic beverages per day.
Thiamine/folate
-
Will advance diet when able
DVT prophylaxis
PPI given hematemesis. Currently not further bleeding.
-
Critical care statement: A total of 32 minutes of critical care time was provided for this patient today. This includes management of unstable vital signs, evaluation of the patient at bedside, reviewing the patient's pertinent medical records
including ventilator settings, arterial blood gases, radiographs, microbiology, laboratory evaluations and discussion with primary team, critical care nursing, and respiratory therapy.
[2023-12-17 11:40] LABS: Glucose - Point of Care 263 mg/dl (70-99)
--- NOTE | 2023-12-17 12:00 | PTCARENOTE ---
Assessment unchanged. Patient oob in chair. Vitals stable. DKA protocol maintained.
[2023-12-17 12:20] LABS: Glucose - Point of Care 271 mg/dl (70-99)
[2023-12-17 12:35] LABS: Blood Urea Nitrogen 16 mg/dl (9-20); Calcium 8.4 mg/dl (8.4-10.2); Carbon Dioxide 19 mmol/L (22-30); Chloride 105 mmol/L (98-107); Estimated Creatinine Clearance 122 ml/min; Glucose 244 mg/dl (70-99); Potassium 4.6 mmol/L (3.5-5.1); Sodium 136 mmol/L (135-145); eGFR > 60.00
--- NOTE | 2023-12-17 13:02 | CM ---
CM follwoing re: discharge planning.
Reviewed pt's chart, met with pt and pt's fiance at bedside.
Pt is a 48 year old male, admitted with primary dx of DKA.
Pt reports he lives with fiadrian in an apartment, has no children. pt described himself as independent in all areas [employer], drives, works. Pt reports he has no insurance. CM provided pt with an application to apply for medical assistance and dasia
insurance information. pt will apply.
PCP: Pt stated he does not have PCP because he has no insurance.
Pharmacy: [facility].
D/C plan: hoe with ance support and to follow up with [facility] office regarding medical assistance and to follow up with [employer] insurance.
CM will follow with discharge plan updates as hospitalization progresses
[2023-12-17 13:21] LABS: Glucose - Point of Care 232 mg/dl (70-99)
[2023-12-17 14:17] LABS: Glucose - Point of Care 249 mg/dl (70-99)
[2023-12-17 15:40] LABS: Glucose - Point of Care 287 mg/dl (70-99)
--- NOTE | 2023-12-17 16:01 | PN.DE.MGMTRT ---
Insulin Management
- -
12/17/2023: Diabetes Management Consult.
48 year old male admitted for N/V due DKA. PMH; T1DM, initially dx at 33 yrs old. Says he moved from [place] ~3months ago and has not established care with a PCP. Says he is in the process of finding a local endo, however, continues to say that it
has been difficult because he has no insurance, tho he has a job. He was using a CGM- Dexcom but has not been able to get if filled since moving. He drinks about 2-3 liquor beverages/day.
He is Usually on long-acting insulin and as needed short acting insulin but he did not have his usual insulin and so has not taken it consistently for a few days.
Pt reports that he is a brittle diabetic and that his blood sugar are very sporadic, says he is very symptomatic if his glucose drops below 120 and that he functions better with a glucose >200. Glucose on admission was 537 with a GAP of 19. Pt was
initiated on Glycemic protocol and admitted to the ICU.
Pt awake, A/O x3, sitting up in chair, at bedside, pt is very argumentative. He has several c/o and excuses to why he came in with DKA, has not been able to get a CGM or fill his insulin. States that none of the providers understand that he is
a unique person with Diabetes.
He is very upset because he feels that he should have been transitioned off the drip this morning to SQ injections.
Explained to pt that his GAP is still open, but improving and will likely transition off the drip later today if his blood work is WNL.
Discussed with Nurse and ICU team to continue DKA protocol and repeat BMP @ 8PM. If GAP closed, pt can be transitioned off drip to SQ insulin, ideally at HS.
Give Lantus 15 units @ HS and start AC NovoLog 5 units with moderate corrective.
Will tomorrow and make further insulin dose adjustments if needed
Diabetes History
- -
Type of Diabetes: 1
Pre-Admission Diabetes Regimen
12/16/23 12/17/23 12/17/23
19:20 00:42 04:03
Creatinine 1.1 1.0 0.9
12/17/23 12/17/23
08:06 12:10
Creatinine 0.8 0.8
Lab Results
Hemoglobin A1c Cancelled 12/16/23 22:13
Insulin Pump Settings
IP Diabetes Regimen
12/16/23 12/16/23 12/16/23
19:20 20:46 21:39
Glucose 537 H*
POC Glucose 498 H* 488 H*
12/16/23 12/16/23 12/17/23
22:12 22:18 00:08
Glucose 438 H
POC Glucose 547 H* 384 H
12/17/23 12/17/23 12/17/23
00:42 01:19 02:01
Glucose 344 H
POC Glucose 295 H 255 H
12/17/23 12/17/23 12/17/23
03:00 04:03 05:02
Glucose 232 H
POC Glucose 243 H 230 H 199 H
12/17/23 12/17/23 12/17/23
06:06 07:02 08:04
Glucose
POC Glucose 230 H 242 H 269 H
12/17/23 12/17/23 12/17/23
08:06 09:30 10:27
Glucose 267 H
POC Glucose 243 H 262 H
12/17/23 12/17/23 12/17/23
11:29 12:08 12:10
Glucose 244 H
POC Glucose 263 H 271 H
12/17/23 12/17/23 12/17/23
13:10 14:05 15:28
Glucose
POC Glucose 232 H 249 H 287 H
Meal type: Lunch
Meal type: Breakfast
Patient Education
[2023-12-17 16:10] LABS: Blood Urea Nitrogen 14 mg/dl (9-20); Calcium 8.4 mg/dl (8.4-10.2); Carbon Dioxide 19 mmol/L (22-30); Chloride 105 mmol/L (98-107); Estimated Creatinine Clearance > 125 ml/min; Glucose 218 mg/dl (70-99); Potassium 4.4 mmol/L (3.5-5.1); Sodium 136 mmol/L (135-145); eGFR > 60.00
--- NOTE | 2023-12-17 16:13 | PTCARENOTE ---
Repeat BMP sent. Gap 12 x2. paraeducator consult obtained. Educator at bedside. Vitals stable. No changes in assessment. Insulin gtt/IVFs maintained. Next BMP due at 1999.
[2023-12-17 16:37] LABS: Glucose - Point of Care 212 mg/dl (70-99)
[2023-12-17 17:44] LABS: Glucose - Point of Care 209 mg/dl (70-99)
[2023-12-17] MEDS: NOVOLIN R INSULIN INFUSION 100 IV (18:10)
[2023-12-17 18:32] LABS: Glucose - Point of Care 177 mg/dl (70-99)
--- NOTE | 2023-12-17 19:30 | PTCARENOTE ---
received report from RN, pt AAOx3, MSAS 3 agitated and frustrated because of his diet status, pt educated and verbalizes understanding, NSR on monitor, lungs diminished @ the bases, SAT's 95% on RA, belly soft non-tender, BSx4, uses urinal due to
void, skin dry and intact, 18G LAC, 20G RAC Insulin gtt 2ml DKA protocol followed, D5/.45 NS/ K 20 meq @ 250 ml/hr, pt able to make needs known, call jacome within reach, otherwise refer to documentation
[2023-12-17 19:47] LABS: Glucose - Point of Care 178 mg/dl (70-99)
[2023-12-17 20:09] LABS: Blood Urea Nitrogen 12 mg/dl (9-20); Calcium 8.7 mg/dl (8.4-10.2); Carbon Dioxide 21 mmol/L (22-30); Chloride 104 mmol/L (98-107); Estimated Creatinine Clearance > 125 ml/min; Glucose 198 mg/dl (70-99); Potassium 4.1 mmol/L (3.5-5.1); Sodium 136 mmol/L (135-145); eGFR > 60.00
[2023-12-17 21:10] LABS: Glucose - Point of Care 213 mg/dl (70-99)
[2023-12-17] MEDS: LANTUS 0.15 UNITS SC (22:09)
[2023-12-17 22:19] LABS: Glucose - Point of Care 223 mg/dl (70-99)
[2023-12-18] VITALS (13 sets, daily range): BP systolic 115–154; BP diastolic 72–96; BMI 22.8
[2023-12-18 00:23] LABS: Glucose - Point of Care 176 mg/dl (70-99)
--- NOTE | 2023-12-18 00:44 | PTCARENOTE ---
systems reviewed, Lantus given @ 2200, glucose checked @ 0000 178, D5/.45NS/K 20meq and insulin gt stopped per order, ambulated to bathroom, otherwise refer to documentation.
[2023-12-18] MEDS: ANESTHETIC LOZENGE 1 LOZENGE PO ×4 (04:41→19:02)
--- NOTE | 2023-12-18 04:54 | PTCARENOTE ---
systems reviewed, labs drawn and sent, no changes to prior assessment, refer to documentation.
[2023-12-18 05:14] LABS: Hemoglobin 12.3 g/dL (13.0-18.0); Mean Corp Hgb Conc. 37.3 g/dL (33.0-37.0); Mean Corpuscular Hgb 33.5 pg (27.0-31.0); Mean Corpuscular Volume 89.9 fL (80.0-94.0); Mean Platelet Volume 12.3 fL (7.4-10.4); Platelet Count 100 10^3/uL (130-400); Red Blood Cell Count 3.67 10^6/uL (4.70-6.10)
[2023-12-18 05:26] LABS: Blood Urea Nitrogen 10 mg/dl (9-20); Calcium 8.7 mg/dl (8.4-10.2); Carbon Dioxide 20 mmol/L (22-30); Chloride 106 mmol/L (98-107); Estimated Creatinine Clearance > 125 ml/min; Glucose 263 mg/dl (70-99); Potassium 4.6 mmol/L (3.5-5.1); Sodium 138 mmol/L (135-145); eGFR > 60.00
[2023-12-18] MEDS: NOVOLOG FLEXPEN-MODERATE RESISTANCE 7 UNITS SC (07:35)
[2023-12-18] MEDS: NOVOLOG FLEXPEN 5 UNITS SC ×3 (07:35→17:30)
[2023-12-18] MEDS: PROTONIX IV 40 MG IV (07:36)
[2023-12-18] MEDS: THIAMINE INJECTION 200 MG IV (07:36)
[2023-12-18] MEDS: FOLVITE 1 MG PO (07:36)
[2023-12-18 07:47] LABS: Glucose - Point of Care 305 mg/dl (70-99)
--- NOTE | 2023-12-18 07:50 | PN.DE.MGMTRT ---
Insulin Management
- -
12/18/2023: Diabetes Management Consult Follow up
Patient admitted for N/V due DKA. PMH; T1DM, initially dx at 33 yrs old. Says he moved from [place] ~3months ago and has not established care with a PCP. Says he is in the process of finding a local endo, however, continues to say that it has been
difficult because he has no insurance, tho he has a job. He was using a CGM- Dexcom but has not been able to get if filled since moving. He drinks about 2-3 liquor beverages/day.
He is awake alert and oriented able to discuss diabetes management. Prior to admission was taking Levemir BID and as needed short acting insulin but he did not have his usual insulin and so has not taken it consistently for a few days.
Pt reports that he is a brittle diabetic and that his blood sugar are very sporadic, says he is very symptomatic if his glucose drops below 120 and that he functions better with a glucose >200. Glucose on admission was 537 with a GAP of 19. Pt was
initiated on DKA protocol and admitted to the ICU.
States that none of the providers understand that he is a unique person with Diabetes and that he knows his diabetes better than anyone.
Transitioned off of DKA protocol insulin infusion @ 12/16 with lantus 15 units. AC novolog 5 units ordered with corrective insulin. Patient reports he was taking long acting insulin BID, will give 20 units lantus now and continue AC novolog 5
units AC with low corrective insulin.
Will follow for further needed adjustments.
Diabetes History
- -
Type of Diabetes: 1
Pre-Admission Diabetes Regimen
12/17/23 12/17/23 12/17/23
08:06 12:10 15:30
Creatinine 0.8 0.8 0.7
12/17/23 12/18/23
19:42 04:30
Creatinine 0.7 0.7
Lab Results
Hemoglobin A1c Cancelled 12/16/23 22:13
Insulin Pump Settings
IP Diabetes Regimen
12/17/23 12/17/23 12/17/23
08:04 08:06 09:30
Glucose 267 H
POC Glucose 269 H 243 H
12/17/23 12/17/23 12/17/23
10:27 11:29 12:08
Glucose
POC Glucose 262 H 263 H 271 H
12/17/23 12/17/23 12/17/23
12:10 13:10 14:05
Glucose 244 H
POC Glucose 232 H 249 H
12/17/23 12/17/23 12/17/23
15:28 15:30 16:25
Glucose 218 H
POC Glucose 287 H 212 H
12/17/23 12/17/23 12/17/23
17:31 18:18 19:36
Glucose
POC Glucose 209 H 177 H 178 H
12/17/23 12/17/23 12/17/23
19:42 20:58 22:08
Glucose 198 H
POC Glucose 213 H 223 H
12/18/23 12/18/23 12/18/23
00:12 04:30 07:34
Glucose 263 H
POC Glucose 176 H 305 H
Meal type: Lunch
Meal type: Breakfast
Patient Education
--- NOTE | 2023-12-18 08:00 | PTCARENOTE ---
Rec'd care of patient at 0700. Patient alert and oriented. NSR on tele monitor. Lung sounds cta on RA. +BS. Voiding in bathroom. Ambulatory in room. Peripheral INTs capped. VSS.
--- NOTE | 2023-12-18 08:23 | W.PN.HOSP.TC ---
Today's Communication/Plan
-
Insulin.
Assessment / Plan
Assessment / Plan
Physical exam:
General: Acutely ill
HEENT: Normocephalic, Atraumatic and Moist Mucous Membranes
Respiratory: Clear to Auscultation; Negative Wheezes, Rales or Rhonchi
Cardiac: Regular Rhythm and S1/S2
GI: Soft, Nontender and Nondistended
Musculoskeletal: No Clubbing, No Cyanosis and No Edema
Neuro: Awake, Alert and Oriented
Psych: Calm
A/P:
# DKA
# Anion gap metabolic acidosis
# History of type 1 diabetes
-DKA resolved
-Insulin drip stopped since midnight
-Will continue with insulin long-acting and short acting
-If blood sugars stable possible discharge in the next 24 hours
-Will need to coordinate well upon discharge to avoid recurrence of issues.
-Transfer out of ICU today
# Hyperkalemia secondary to insulin deficiency
-Resolved
-Monitor with IV fluids
# Hematemesis likely Norma-Storey tear
-Hemoglobin 12.3 today
-Bleeding resolved
-Protonix 40 IV twice daily
-Monitor hemoglobin
# Likely alcohol withdrawal
-Thiamine and folate
-Alcohol withdrawal protocol
Full code
DVT prophylaxis�SCDs
Anticipated Discharge: Within 24 hours
Subjective/Interval History
-
Date of Service: December 18, 2023
Patient feels better today. Afebrile
Objective Data
-
Labs:
Laboratory Results
12/18/23
04:30
WBC 8.0
Hgb 12.3 L
Hct 33.0 L
Plt Count 100 L D
Sodium 138
Potassium 4.6
Chloride 106
Carbon Dioxide 20 L
BUN 10
Creatinine 0.7
Glucose 263 H
Calcium 8.7
Vital Signs:
Vital Signs
Temp Pulse Resp BP Pulse Ox
98.8 F 96 17 144/88 99
12/18/23 07:41 12/18/23 08:00 12/18/23 08:00 12/18/23 07:00 12/18/23 08:00
I&O
12/17/23 12/18/23 12/19/23
06:59 06:59 06:59
Intake Total 2030 / 2283 4784 / 5264 480 / 480
Output Total 2224 / 2224
Balance -194 / 59 4784 / 5264 480 / 480
[2023-12-18] MEDS: NOVOLOG FLEXPEN-MODERATE RESISTANCE SC (09:47)
--- NOTE | 2023-12-18 09:57 | PTCARENOTE ---
Patient downgraded to M/S.
--- NOTE | 2023-12-18 10:07 | PTCARENOTE ---
educator senior clinical at bedside.
--- NOTE | 2023-12-18 11:45 | W.PN.INTV ---
Today's Communication / Plan
Recommendations
Subcu insulin
Increase activity
Transferred to [facility]
Assessment
-
Diabetes ketoacidosis-triggered by medical noncompliance.
ABG 12/17/2023 1 AM, 7.0
Hematemesis-possible Norma-Storey tear post vomiting
History of type 1 diabetes
Daily alcohol use
Assessment and plan:
Metabolic acidosis resolved
Patient has been transition to subcu insulin-diabetes nurse practitioner has seen the patient.
Asymptomatic and tolerating diet.
Normal renal function
Electrolytes are balanced
-
Monitor for alcohol withdrawal. Patient drinks at least 3 alcoholic beverages per day.
No evidence for alcohol withdrawal at this point.
-
Advance diet as tolerated
DVT prophylaxis-SCD
PPI given hematemesis. Currently not further bleeding. Okay to discontinue PPI at this point. No further vomiting or coffee-ground. Denies abdominal pain.
-
Strongly advised to get a local primary care doctor.
-
Transfer to telemetry.
Critical care team will sign off
Subjective Dataa
Subjective Data
Date of Service:
Date of Service: December 18, 2023
Chief Complaint: Provider Relations Coordinator Follow Up (Diabetes ketoacidosis)
Subjective:
Clinically improved
Denies nausea or vomiting
Tolerating diet
Review of Systems
Cardiopulmonary: Dyspnea (n), Sputum Production (n) and Chest Pain (n)
GI: Abdominal Pain (n) and Nausea (n)
Neuro: Headache (n)
Objective Data
Data Reviewed
Vital Signs / I&O / Oxygen:
Vital Signs
Temp Pulse Resp BP Pulse Ox
98.8 F 87 20 146/84 99
12/18/23 07:41 12/18/23 10:00 12/18/23 10:00 12/18/23 10:00 12/18/23 10:00
Intake and Output
12/17/23 12/18/23 12/19/23
06:59 06:59 06:59
Intake Total 2030 / 2283 4784 / 5264 720 / 720
Output Total 2224 / 2224
Balance -194 59 4784 / 5264 720 / 720
SaO2 99
Nasal Cannula flow liters per 2
minute
Physical Exam
General: Comfortable
HEENT: Normocephalic
Cardiovascular: S1-S2
Respiratory: Clear and Non-Labored Respirations
GI: Soft and Non Distended
Neurology: Awake, Alert, Oriented and No Motor Deficits
Skin: Warm
Labs/Micro/Reports
Lab Data
12/18/23 04:30
12/18/23 04:30
[2023-12-18] MEDS: NOVOLOG FLEXPEN-MODERATE RESISTANCE 3 UNITS SC (12:17)
[2023-12-18] MEDS: LANTUS 0.2 UNITS SC ×2 (12:20→22:30)
[2023-12-18 12:29] LABS: Glucose - Point of Care 207 mg/dl (70-99)
--- NOTE | 2023-12-18 13:12 | CM ---
Pt moved form ICU to 337-1
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
[facility].
Will offer [facility] [phone] pt has no PCP . Moved recently
PLAn home no needs
--- NOTE | 2023-12-18 13:12 | TRANSFER ---
Report given to MILO Mast. Patient transported in wheelchair to [facility] with belongings.
--- NOTE | 2023-12-18 13:44 | PTCARENOTE ---
Received report from ASSISTANT COACH Kavitha. Transferred to room 337-1. VSS. Updated on plan of care. Gait steady able to ambulate independently around room. Encouraged to make needs known.
[2023-12-18 17:26] LABS: Glucose - Point of Care 266 mg/dl (70-99)
[2023-12-18] MEDS: NOVOLOG FLEXPEN-MODERATE RESISTANCE 5 UNITS SC (17:28)
[2023-12-18 21:30] LABS: Glucose - Point of Care 187 mg/dl (70-99)
[2023-12-19] MEDS: ANESTHETIC LOZENGE 1 LOZENGE PO (06:06)
[2023-12-19 06:49] LABS: Blood Urea Nitrogen 12 mg/dl (9-20); Calcium 9.2 mg/dl (8.4-10.2); Carbon Dioxide 24 mmol/L (22-30); Chloride 102 mmol/L (98-107); Estimated Creatinine Clearance > 125 ml/min; Glucose 245 mg/dl (70-99); Potassium 3.6 mmol/L (3.5-5.1); Sodium 139 mmol/L (135-145); eGFR > 60.00
[2023-12-19 07:30] VITALS: BP 150/98
[2023-12-19 07:44] LABS: Glucose - Point of Care 259 mg/dl (70-99)
[2023-12-19] MEDS: NOVOLOG FLEXPEN-MODERATE RESISTANCE 5 UNITS SC (08:44)
[2023-12-19] MEDS: LANTUS 0.2 UNITS SC (08:44)
[2023-12-19] MEDS: NOVOLOG FLEXPEN 5 UNITS SC (08:44)
--- NOTE | 2023-12-19 08:50 | PN.DE.MGMTRT ---
Insulin Management
- -
12/19/2023: Diabetes Management Consult Follow up
Patient admitted for N/V due DKA. PMH; T1DM, initially dx at 33 yrs old. Says he moved from [place] ~3months ago and has not established care with a PCP. Says he is in the process of finding a local endo, however, continues to say that it has been
difficult because he has no insurance, tho he has a job. He was using a CGM- Dexcom but has not been able to get if filled since moving. He drinks about 2-3 liquor beverages/day.
He is awake alert and oriented able to discuss diabetes management. Prior to admission was taking Levemir BID and as needed short acting insulin but he did not have his usual insulin and so has not taken it consistently for a few days.
Pt reports that he is a brittle diabetic and that his blood sugar are very sporadic, says he is very symptomatic if his glucose drops below 120 and that he functions better with a glucose >200. Glucose on admission was 537 with a GAP of 19. Pt was
initiated on DKA protocol and admitted to the ICU.
States that none of the providers understand that he is a unique person with Diabetes and that he knows his diabetes better than anyone.
Transitioned off of DKA protocol insulin infusion @ hs 12/16 with lantus 15 units. AC novolog 5 units ordered with corrective insulin. Patient reports he was taking long acting insulin BID, will give 20 units lantus at 10AM 12/17. Glucose range 187
to 266.
12/18 Fasting glucose 259 this AM. Will continue lantus 20 units BID and increase AC novolog to 8 units with low corrective insulin.
*Upon discussion with patient he has no insurance and no money to afford insulin, he was hoping for a benevolent fund. Advised patient that I am not aware of a fund to access. He states cm advised him he makes too much money for Medicaid.
Advised patient 70/30 NovoLIN would be the most affordable, he is agreeable.
Will start 30 units with dinner and then BID. Advised patient to continue to test glucose. It is imperative he find a primary doctor, advised of [employer] program but he states that is too far. Suggest he check [facility] for
free clinic or a primary. Also advised patient that once he has a primary doctor they may be able to utilize the patient assistance programs available from insulin companies.
Will follow for further needed adjustments.
Diabetes History
- -
Type of Diabetes: 1
Pre-Admission Diabetes Regimen
12/19/23
05:28
Creatinine 0.6 L
Lab Results
Hemoglobin A1c Cancelled 12/16/23 22:13
Insulin Pump Settings
IP Diabetes Regimen
12/18/23 12/18/23 12/18/23
12:15 17:25 21:28
Glucose
POC Glucose 207 H 266 H 187 H
12/19/23 12/19/23
05:28 07:43
Glucose 245 H
POC Glucose 259 H
Meal type: Lunch
Meal type: Breakfast
Amount consumed: 100%
Amount consumed: 100%
Patient Education
--- NOTE | 2023-12-19 09:03 | W.PN.HOSP.TC ---
Today's Communication/Plan
-
Discharge planning today
Assessment / Plan
Assessment / Plan
Physical exam:
General: No acute distress
HEENT: Normocephalic, Atraumatic and Moist Mucous Membranes
Respiratory: Clear to Auscultation; Negative Wheezes, Rales or Rhonchi
Cardiac: Regular Rhythm and S1/S2
GI: Soft, Nontender and Nondistended
Musculoskeletal: No Clubbing, No Cyanosis and No Edema
Neuro: Awake, Alert and Oriented
Psych: Calm
A/P:
# DKA
# Anion gap metabolic acidosis
# History of type 1 diabetes
Insulin Novolin 70/30 30 units twice a day
Discussed with CROWN BUFFER diabetes
Discussed with case management
Plan to discharge later today
Prior to today:
-DKA resolved
-Insulin drip stopped since midnight
-Will continue with insulin long-acting and short acting
-If blood sugars stable possible discharge in the next 24 hours
-Will need to coordinate well upon discharge to avoid recurrence of issues.
-Transfer out of ICU today
# Hyperkalemia secondary to insulin deficiency
-Resolved
# Hematemesis likely Norma-Storey tear
-Hemoglobin 12.3 today
-Bleeding resolved
-Protonix 40 IV twice daily
-Monitor hemoglobin
# Likely alcohol withdrawal
-Thiamine and folate
-Alcohol withdrawal protocol but no need for withdrawal medications
Full code
DVT prophylaxis�SCDs
Anticipated Discharge: Today
Subjective/Interval History
-
Date of Service: December 19, 2023
No new complaints
Objective Data
-
Labs:
Laboratory Results
12/19/23
05:28
Sodium 139
Potassium 3.6
Chloride 102
Carbon Dioxide 24
BUN 12
Creatinine 0.6 L
Glucose 245 H
Calcium 9.2
Vital Signs:
Vital Signs
Temp Pulse Resp BP Pulse Ox
98.1 F 77 16 150/98 100
12/19/23 07:30 12/19/23 07:30 12/19/23 07:30 12/19/23 07:30 12/19/23 07:30
I&O
12/18/23 12/19/23 12/20/23
06:59 06:59 06:59
Intake Total 4784 / 5264 2630 / 2630
Balance 4784 / 5264 2630 / 2630
[2023-12-19 12:20] LABS: Glucose - Point of Care 210 mg/dl (70-99)
[2023-12-19] MEDS: NOVOLOG FLEXPEN-MODERATE RESISTANCE 3 UNITS SC (12:24)
[2023-12-19] MEDS: NOVOLOG FLEXPEN 8 UNITS SC (12:24)
--- NOTE | 2023-12-19 13:47 | CM ---
Addendum entered by Nancie Reid RN 12/19/23 16:35:
Pt said his fiance Ngoc will drive him home today .
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
Original Note:
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
DM educator saw pt today to review DM care and advised him on affordable insulin options.
Notified JOCELIN Styles to see pt for no insurance.He makes too much money for medicaid.
Information given about [facility] [phone] pt has no PCP .
PLAN home no needs
[2023-12-19 15:35] VITALS: BP 147/85
[2023-12-19 16:35] LABS: Glucose - Point of Care 147 mg/dl (70-99)
[2023-12-19] MEDS: NOVOLOG FLEXPEN-MODERATE RESISTANCE SC (16:35)
[2023-12-19] MEDS: NOVOLOG MIX 70/30 FLEXPEN 30 UNITS SC (16:42)
== END 2023-12-19 17:30 | disposition home or self-care (01) | DRG 637 ==
LOC: 3 WEST ACU 21:38
PROVIDERS: Nurse Practitioner Primary Care; Physician Assistant; Student in an Organized Health Care Education/Training Program; ADMITTING PHYSICIAN Hospitalist; ATTENDING PHYSICIAN Hospitalist; EMERGENCY PHYSICIAN Emergency Medicine; OTHER PHYSICIAN Internal Medicine Critical Care Medicine
DX: E10.10 Type 1 diabetes mellitus with ketoacidosis without coma (principal); K22.6 Gastro-esophageal laceration-hemorrhage syndrome; R04.2 Hemoptysis; F10.930 Alcohol use, unspecified with withdrawal, uncomplicated; R10.9 Unspecified abdominal pain; M79.10 Myalgia, unspecified site; E87.5 Hyperkalemia; D64.9 Anemia, unspecified; Z79.4 Long term (current) use of insulin; Z91.199 Patient's noncompliance with other medical treatment and regimen due to unspecified reason; Z59.71 Insufficient health insurance coverage
CPT/HCPCS: 71045; 80048; 80053; 81003; 81015; 82010; 82805; 82947; 82962; 83036; 84100; 85025; 85027; 85610; 85730; 93005; 96361; 96374; 96375; 99291; J3480; J7030